=== PATIENT | male | born 1985 | race Caucasian/White ===

== ENCOUNTER 2018-01-02 16:09 | Inpatient (IN) | payer OTHER ==
[~2018-01-02] VITALS: Ht 182.9 cm; Wt 107.7 kg
[2018-01-02 16:12] VITALS: Ht 182.9 cm; Wt 107.7 kg
[2018-01-02 17:24] LABS: BASOPHIL % 0.3 % (0-2); PLATELET COUNT 281 x10^3mcL (130-400); RED CELL DISTRIBUTION WIDTH 13.4 % (11.5-14.5)
[2018-01-02 17:38] LABS: microscopic required? NO
[2018-01-02 17:49] LABS: UA SPECIFIC GRAVITY 1.015 (1.005-1.035); urine erythrocyte NEGATIVE (NEGATIVE)
[2018-01-02 17:54] LABS: AMPHETAMINE QUAL UR NONE DETECTED (See below)
[2018-01-02 18:04] LABS: CALCIUM 8.7 mg/dL (8.5-10.1); CARBON DIOXIDE 27.7 mmol/L (21-32); CHLORIDE SERUM 106 mmol/L (98-107); GFR1 > 60 mL/min; GLUCOSE SERUM 100 mg/dL (74-106); SODIUM SERUM 141 mmol/L (136-145)
[2018-01-02 18:08] LABS: ALBUMIN 3.7 g/dL (3.4-5.0); ALKALINE PHOSPHATASE 59 U/L (46-116); ALT/SGPT 43 U/L (16-63); AST/SGOT 18 U/L (15-37); BILIRUBIN TOTAL 0.3 mg/dL (0.20-1.00); TOTAL PROTEIN, SERUM 7.1 g/dL (6.4-8.2)
[2018-01-03 14:54] LABS: T3 TOTAL 0.77 ng/mL
[2018-01-03 15:07] LABS: MAGNESIUM 2.3 mg/dL (1.8-2.4); PHOSPHOROUS 2.9 mg/dL (2.5-4.9)
[2018-01-03] MEDS ORDERED: XANAX2 MG PO (15:13)
[2018-01-03 16:06] VITALS: BP 148/85
[2018-01-03 16:38] LABS: FREE T4 1.18 ng/dL (0.76-1.46); FREE THYROXINE INDEX 2.3 ug/dL (1.4-4.5); T4(THYROXINE) 6.3 ug/dL (4.7-13.3)
[2018-01-03 20:26] VITALS: BP 133/85
[2018-01-04 05:36] VITALS: BP 123/83
[2018-01-04 06:15] LABS: BASOPHIL % 0.4 % (0-2); PLATELET COUNT 255 x10^3mcL (130-400); RED CELL DISTRIBUTION WIDTH 13.7 % (11.5-14.5)
[2018-01-04 06:25] LABS: CALCIUM 8.7 mg/dL (8.5-10.1); CARBON DIOXIDE 27.7 mmol/L (21-32); CHLORIDE SERUM 107 mmol/L (98-107); GFR1 > 60 mL/min; GLUCOSE SERUM 94 mg/dL (74-106); POTASSIUM SERUM 3.3 mmol/L (3.5-5.1); SODIUM SERUM 141 mmol/L (136-145)
[2018-01-04 09:00] VITALS: BP 137/76
[2018-01-04 12:07] VITALS: BP 137/76
== END 2018-01-04 13:04 | disposition home or self-care (01) | DRG 754 ==
LOC: ED 16:09 → MU 01-03 12:40 → DU 01-03 12:40 → MU 01-03 15:46
PROVIDERS: Emergency Medicine; Internal Medicine
DX: F32.9 Major depressive disorder, single episode, unspecified (principal); F12.90 Cannabis use, unspecified, uncomplicated; K21.9 Gastro-esophageal reflux disease without esophagitis; F41.9 Anxiety disorder, unspecified
CPT/HCPCS: 84439; G0480; J7030